=== PATIENT | female | born 1945 | race Caucasian/White ===

== ENCOUNTER → 2016-11-29 | Outpatient (CLI) | payer MEDICARE, OTHER ==
[~2016-11-29] MED LIST: CIPR-225 PO; DOCU100C37 PO; EST30C VG; HYDR-3874 PO; IBUP-1780 PO; LISI-552 PO; METR500T PO; OXYC-465 PO
--- NOTE | 2016-11-29 21:10 | Diagnostic Imaging Report ---
Bilateral screening mammogram 2D views with tomosynthesis The current study was also evaluated with a Computer Aided Detection (CAD) system. Indication: Screening. No current complaints stated on the questionnaire. COMPARISON: 12/02/15. FINDINGS: The breasts are composed of scattered fibroglandular densities. There are benign-appearing calcifications seen. Allowing for technique and positional differences, no suspicious change is seen. IMPRESSION: No significant change. ACR BI-RADS Category 2: Benign findings. Result letter will be mailed to the patient. Note: At least 10% of breast cancer is not imaged by mammography. Dictated by: Dictated on workstation # [id number]
== END ==
LOC: RAD 09:45
PROVIDERS: ATTEND Family Medicine
DX: Z12.31 Encounter for screening mammogram for malignant neoplasm of breast (principal)
CPT/HCPCS: 77067

== ENCOUNTER 2017-02-15 05:44 | Outpatient (CLI) | payer MEDICARE, OTHER ==
[~2017-02-15] VITALS: Ht 165.1 cm; Wt 67.6 kg
[2017-02-15] MEDS ORDERED: ASPI-586 PO (13:33)
== END 2017-02-15 13:46 ==
LOC: PREOP 05:44
PROVIDERS: ATTEND Urology
DX: Z01.818 Encounter for other preprocedural examination (principal); N81.10 Cystocele, unspecified; R32 Unspecified urinary incontinence

== ENCOUNTER 2017-02-22 08:00 | Day surgery (SDC) | payer MEDICARE, OTHER ==
[~2017-02-22] VITALS: Ht 165.1 cm; Wt 67.6 kg
--- NOTE | 2017-02-22 07:12 | Progress Note-Pre Operative ---
Pre-Operative Progress Note H&P Reviewed The H&P was reviewed, patient examined and no changes noted. Date Seen by Provider: Feb 22, 2017 Time Seen by Provider: 08:47 Date H&P Reviewed: Feb 22, 2017 Time H&P Reviewed: 08:47 Pre-Operative Diagnosis: CYSTOCELE , INCONTINENCE, OAB AND ISD ANGELA GARIBAY MD Feb 22, 2017 7:12 am
--- NOTE | 2017-02-22 07:13 | Progress Note-Post Operative ---
Post-Operative Progess Note Surgeon (s)/Offensive Coordinator (s) Surgeon ANGELA GARIBAY MD Offensive Coordinator: N/A Pre-Operative Diagnosis CYSTOCELE , INCONTINENCE, OAB AND ISD Post-Operative Diagnosis SAME Procedure & Operative Findings Date of Procedure 02/22/17 Procedure Performed/Findings ANTERIOR REPAIR, PVS, AND CYSTOSCOPY Anesthesia Type GENERAL Estimated Blood Loss Estimated blood loss (mL): 150CC Specimens/Packing Specimens Removed NONE TO PATHOLOGY Packing: ESTRACE VAGINAL PACK ANGELA GARIBAY MD Feb 22, 2017 7:13 am
[~2017-02-22 08:00] MED LIST changes: +ASPI-586 PO; +HYDROcodone/APAP 10 MG/325 MG (LORTAB) TAB PO PRN; +KETOROLAC 30 MG/ML VIAL IV PRN
[2017-02-22] MEDS ORDERED: LACTATED RINGERS 1,000 ML IV PRN (08:06)
[2017-02-22 08:07] VITALS: BP 132/82
[2017-02-22] MEDS ORDERED: cefTRIAXone INJECTION 1,000 MG in NS (IVPB) 50 ML IV ONE (08:15)
[2017-02-22] MEDS ORDERED: LIDOCAINE PF 2% 5 ML (XYLOCAINE) VIAL ONE (08:47)
[2017-02-22] MEDS ORDERED: SEVOFLURANE (ULTANE) 15 ML INHAL SOLN ONE ×4 (08:47→11:14)
[2017-02-22] MEDS ORDERED: proPOfol 200 MG/20 ML (DIPRIVAN) VIAL IV ONE (08:47)
[2017-02-22] MEDS ORDERED: ONDANSETRON 4 MG/2 ML (SDV) Z0FRAN ONE (08:47)
[2017-02-22] MEDS ORDERED: DEXAMETHASONE 10 MG/ML (DECADRON) 1 ML VIAL ONE (08:47)
[2017-02-22] MEDS ORDERED: fentaNYL INJECTION 100 MCG/2 ML AMP ONE ×2 (08:48→10:30)
[2017-02-22] MEDS: LACTATED RINGERS 1,000 ML IV SCH ×4 (09:09→22:50)
[2017-02-22] MEDS ORDERED: ESTRADIOL VAGINAL CREAM 42.5 GM (ESTRACE) VG ONE (09:15)
[2017-02-22] MEDS ORDERED: LIDOCAINE/EPI 1%-1:200,000 (XYLOCAINE) 10 ML VIAL ONE (09:15)
[2017-02-22] MEDS ORDERED: ONDANSETRON 4 MG/2 ML (SDV) Z0FRAN IVP PRN ×2 (11:00→18:00)
[2017-02-22] MEDS ORDERED: morphine INJ 10 MG/ML 1ML (SYR OR VIAL) IVP PRN (11:00)
[2017-02-22] MEDS: HYDROmorphone (DILAUDID) 2 MG/ML VIAL IVP PRN ×2 (11:40→11:50)
[2017-02-22 12:30] VITALS: BP 125/55
[2017-02-22 13:45] VITALS: BP 92/47
[2017-02-22 16:00] VITALS: BP 99/56
[2017-02-22] MEDS ORDERED: CATHETER FLUSH 10 ML SYR IV PRN (18:15)
[2017-02-22 20:25] VITALS: BP 96/63
--- NOTE | 2017-02-22 20:45 | OPERATIVE REPORT ---
DATE OF SERVICE: 02/22/2017 PREOPERATIVE DIAGNOSES: 1. Grade IV cystocele. 2. 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 POSTOPERATIVE DIAGNOSES: 1. Grade IV cystocele. 2. 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 OPERATION PERFORMED: Anterior repair and a pubovaginal sling with cystoscopy. SURGEON: Dr. Garibay ANESTHESIA: General. COMPLICATIONS: None. PROCEDURE: Under satisfactory general anesthesia, the patient in extended lithotomy position, genitalia were prepped and draped in the usual sterile fashion. A Rodriguez catheter was inserted draining the bladder. Again noted the 4+ cystocele with no rectocele. I infiltrated the anterior vaginal wall with lidocaine and epinephrine. I made a midline incision, dissected the mucosa off the underlying fascia and bladder. The bladder was thin. There was quite a bit of scar tissue from the previous surgery using sharp dissection. The bladder was intact all through this operation and at the end we dissected the mucosa off the tissues, then I approximated the fascia with interrupted 2-0 Vicryl to support the bladder nicely. To close, there was quite a bit of redundancy of the mucosa posteriorly and I asked Dr. Flores to come and just examine with me to make sure that I can cut the tissue without any ability and he agreed on that. We went ahead and excised that part. Then, I approximated the mucosa first with interrupted 2-0 Vicryl suture starting at the top and then after that running 2-0 Vicryl suture for the rest of it. Before I did that, I passed a pubovaginal sling, Solyx type. Using the described technique, it was sitting nicely under the mid urethra. I removed the Rodriguez catheter to perform a cystoscopy to confirm the integrity of the bladder, ureters and urethra with the sling under the midurethra. We left the bladder half full, performed the minimal Valsalva maneuver that was negative. I reinserted the Rodriguez catheter again draining clear fluid and I proceeded with the rest of the surgery as dictated above. Estimated blood loss 150 mL, none of which was replaced. The patient tolerated the procedure and anesthesia well, was sent to recovery room in stable condition. Job ID: [id number] DocumentID: [id number] Dictated Date: 02/22/2017 11:22:39 Web Site Administrator Date: 02/22/2017 20:19:28 Dictated By: ANGELA GARIBAY MD
[2017-02-23 01:00] VITALS: BP 91/57
[2017-02-23 05:00] VITALS: BP 97/62
[2017-02-23 05:31] LABS: BASOPHILS % (AUTO) 0 % (0-10); EOSINOPHILS % (AUTO) 0 % (0-10); HEMATOCRIT 28 % (35-52); HEMOGLOBIN 9.6 G/DL (11.5-16.0); LYMPHOCYTES # (AUTO) 1.1 X 10^3 (1.0-4.0); LYMPHOCYTES % (AUTO) 12 % (12-44); MEAN CORPUSCULAR HEMOGLOBIN 30 PG (25-34); MEAN CORPUSCULAR HGB CONC 34 G/DL (32-36); MEAN CORPUSCULAR VOLUME 87 FL (80-99); MEAN PLATELET VOLUME 9.2 FL (7.4-10.4); MONOCYTES # (AUTO) 0.7 X 10^3 (0.0-1.0); MONOCYTES % (AUTO) 8 % (0-12); NEUTROPHILS # (AUTO) 7.3 X 10^3 (1.8-7.8); NEUTROPHILS % (AUTO) 80 % (42-75); PLATELET COUNT 201 10^3/uL (130-400); RED BLOOD COUNT 3.24 10^6/uL (4.35-5.85); RED CELL DISTRIBUTION WIDTH 12.1 % (10.0-14.5); WHITE BLOOD COUNT 9.2 10^3/uL (4.3-11.0)
[2017-02-23 05:51] LABS: BUN/CREATININE RATIO 21; CALCIUM 8.9 MG/DL (8.5-10.1); CARBON DIOXIDE 27 MMOL/L (21-32); CHLORIDE 102 MMOL/L (98-107); CREATININE SERUM 0.63 MG/DL (0.60-1.30); GFR ESTIMATED > 60; GLUCOSE 91 MG/DL (70-105); POTASSIUM 4.1 MMOL/L (3.6-5.0); SODIUM 136 MMOL/L (135-145)
[2017-02-23] MEDS: LACTATED RINGERS 1,000 ML IV SCH (06:53)
[2017-02-23] MEDS ORDERED: LEVOFLOXACIN 250 MG/50 ML IVPB 50 ML IV SCH (07:13)
[2017-02-23] MEDS ORDERED: INFLUENZA TRIvalent 2017-2018 0.5 ML/45 MCG SYR IM ONE (07:45)
[2017-02-23 08:43] VITALS: BP 100/58
[2017-02-23] MEDS ORDERED: CIPR-225 PO (10:03)
== END 2017-02-23 11:30 | disposition home or self-care (01) ==
LOC: SDC 08:00 → WS 11:41 → SDC 02-23 11:30
PROVIDERS: ATTEND Urology
DX: N81.10 Cystocele, unspecified (principal); N32.81 Overactive bladder; R32 Unspecified urinary incontinence; N36.42 Intrinsic sphincter deficiency (ISD); I10 Essential (primary) hypertension; Z79.899 Other long term (current) drug therapy; Z79.82 Long term (current) use of aspirin
CPT/HCPCS: 36415; 80048; 85025; 87081; 94664